=== PATIENT | female | born 1985 | race Caucasian/White ===

== ENCOUNTER → 2024-05-12 | Outpatient (CLI) | payer OTHER ==
[~2024-05-12] MED LIST: MOTRIN 600600 MG/TAB PO; PHENERGAN12.5 MG/SU RC; PRENATAL VITAMI1 TA5 PO; SLOW FE160 MG
== END ==
LOC: MC.RAD 13:59
DX: Z12.31 Encounter for screening mammogram for malignant neoplasm of breast (principal)